=== PATIENT | female | born 1945 | race Caucasian/White ===

== ENCOUNTER 2018-11-20 11:36 | Emergency (ER) | payer OTHER ==
[2018-11-20 12:00] VITALS: BP 139/76; PULSE 89; TEMP 98; BMI 20.5
--- NOTE | 2018-11-20 12:51 | PDOC ---
History of Present Illness - General Chief Complaint: Injury Stated Complaint: FALL Time Seen by Provider: 11/20/18 12:24 - History of Present Illness Initial Comments: 11/20/18 12:48 73-year-old female with a past medical history of hypertension and dyslipidemia presents for evaluation of right wrist pain after fall on an outstretched hand while playing with her grandson today. She did not hit her head Past History - Past Medical History Allergies/Adverse Reactions: Allergies Allergy/AdvReac Type Severity Reaction Status Date / Time aspirin Allergy Verified 11/20/18 12:00 COPD: No HTN: Yes Hypercholesterolemia: Yes Other medical history: OSTEOPOROSIS - Psycho Social/Smoking Cessation Hx Smoking History: Never smoked Review of Systems - Review of Systems Musculoskeletal: Yes: Joint Pain *Physical Exam - Vital Signs Last Vital Signs Temp Pulse Resp BP Pulse Ox 98 F 89 18 139/76 98 11/20/18 11:57 11/20/18 11:57 11/20/18 11:57 11/20/18 11:57 11/20/18 11:57 - Physical Exam Comments: 11/20/18 12:49 Right wrist skin color and temperature normal. There is swelling about the distal radius with associated tenderness decreased supination and pronation normal elbow flexion and extension no gross sensorimotor deficits neurovascular intact ED Treatment Course - RADIOLOGY Radiology Studies Ordered: Category Date Time Status WRIST- RIGHT [RAD] Stat Radiology 11/20/18 12:24 Taken Medical Decision Making - Medical Decision Making 11/20/18 12:49 X-rays of the right wrist show distal radius fracture which is impacted sugar tong splint applied patient neurovascular intact post sugar tong splint application orthopedic surgery follow-up given discussed use of Tylenol for pain Discharge - Discharge Information Problems reviewed: Yes Clinical Impression/Diagnosis: Wrist fracture, right Condition: Stable Disposition: HOME - Admission No - Follow up/Referral Referrals: Gordon Avery DO [Staff Physician] - - Patient Discharge Instructions Additional Instructions: Please keep the splint in place clean and dry. Do not remove it. Tylenol as directed for pain. Return to the emergency room for worsening symptoms. Without fail, please follow-up with orthopedic surgery in 1 to 2 days for further evaluation and treatment options. - Post Discharge Activity
== END 2018-11-20 13:25 | disposition home or self-care (01) ==
LOC: JERFT 11:36 → EDBD 11:36 → JERFT 13:25
PROC: 2W3CX1Z Immobilization of Right Lower Arm using Splint (ICD-10-PCS; principal; 2018-11-20)
DX: S52.591A Other fractures of lower end of right radius, initial encounter for closed fracture (principal); W18.39XA Other fall on same level, initial encounter; Y93.89 Activity, other specified; Y92.018 Other place in single-family (private) house as the place of occurrence of the external cause; Y99.8 Other external cause status; I10 Essential (primary) hypertension; E78.5 Hyperlipidemia, unspecified; E78.00 Pure hypercholesterolemia, unspecified; M19.90 Unspecified osteoarthritis, unspecified site; Z88.6 Allergy status to analgesic agent
CPT/HCPCS: 29126; 73110-TC-RT-FY; 99282-25

== ENCOUNTER 2018-11-28 04:49 | Day surgery (SDC) | payer OTHER ==
[2018-11-27 15:41] VITALS: BMI 20.5
[2018-11-28] MEDS ORDERED: SODIUM CHLORIDE 0.9% P/F 10 ML VIAL IJ ONE (09:42)
[2018-11-28] MEDS ORDERED: DEXAMETHASONE SOD PHOSPHATE 4 MG/1 ML VIAL ONE (09:42)
[2018-11-28] MEDS ORDERED: PROPOFOL 20 ML ONE (09:42)
[2018-11-28] MEDS ORDERED: ceFAZolin SODIUM 1 GM VIAL ONE (09:42)
--- NOTE | 2018-11-28 09:56 | HP ---
Satellite PMH - Chief Complaint Chief Complaint: right wrist fx - Past Medical History Allergies/Adverse Reactions: Allergies Allergy/AdvReac Type Severity Reaction Status Date / Time aspirin Allergy Intermediate Verified 11/27/18 15:42 [facility] Physical Exam - Physical Examination General Appearance: Well Nourished, Well Developed, Alert & Oriented x3 ENT: Clear Lung: Normal air movement Heart: Regular rate & rhythm Extremities: Other (right wrist- + swelling, + deformity, + ttp, decr rom, nvi, xrays show displaced distal radius fx) Neurological: Intact, Alert, Oriented Satellite Impression/Plan - Impression/Plan Impression: right distal radius fx Operative Procedure: right distal radius orif Date to be Performed: 11/28/18
[2018-11-28] MEDS ORDERED: oxyCODONE HCL 5 MG TABLET PO PRN ×2 (10:34)
[2018-11-28] MEDS ORDERED: ONDANSETRON 4 MG/2 ML VIAL IVPUSH PRN (10:34)
[2018-11-28] MEDS ORDERED: LACTATED RINGERS SOLUTION 1,000 ML IV SCH (10:45)
[2018-11-28] MEDS ORDERED: MIDAZOLAM HCL 2 MG/2 ML SINGLE DOSE VIAL ONE ×2 (11:07)
[2018-11-28] MEDS ORDERED: LIDOCAINE HCL 1%, 10 MG/ML (20ML VIAL) ONE (11:27)
[2018-11-28] MEDS ORDERED: BUPIVACAINE HCL/PF 0.5% (5 MG/ML) 30 ML VIAL IJ ONE (11:28)
[2018-11-28] MEDS ORDERED: ceFAZolin SODIUM 1 GM VIAL IVPB ONE (12:20)
--- NOTE | 2018-11-28 13:36 | OP ---
Operative Note - Note: Operative Date: 11/28/18 Pre-Operative Diagnosis: right distal radius fx Operation: right distal radius ORIF, Brachioradialis tenotomy Implants: [employer] Low Profile DVR Plate, x6 blue distal partially threaded locking screws 16-24mm, x3 3.5 mm purple proximal screws 10, 10, 12mm Post-Operative Diagnosis: Same as Pre-op Surgeon: Kevin Anna Tape Edge Machine Operator: Ted Zaragoza Anesthesiologist/RELIEF MANAGER: Carolin Silveira Anesthesia: General Estimated Blood Loss (mls): 0 Drains, Volume Out (mls): 0 Blood Volume Replaced (mls): 0 Fluid Volume Replaced (mls): 1,000 Operative Report Dictated: Yes
[2018-11-28 16:06] VITALS: BP 126/61; PULSE 71; TEMP 98
--- NOTE | 2018-11-29 08:08 | SPEC ---
DATE OF OPERATION: 11/28/2018 PREOPERATIVE DIAGNOSIS: Comminuted intra-articular displaced right distal radius fracture. POSTOPERATIVE DIAGNOSIS: Comminuted intra-articular displaced right distal radius fracture. PROCEDURE PERFORMED: Right distal radius open reduction and internal fixation, and brachioradialis tenotomy. SURGEON: Joan Fournier M.D. DIRECTOR OF STRATEGIC SALES: ANIBAL Worthington ANESTHESIOLOGIST: Carolin Silveira MD ANESTHESIA: LM anesthesia with a right interscalene block. DRAINS: None. COMPLICATIONS: None. SPECIMENS: None. BLOOD LOSS: None. BLOOD GIVEN: None. FLUID REPLACEMENT: PlasmaLyte 700 mL. TOTAL TOURNIQUET TIME: 49 minutes. INDICATIONS: This patient is a 73-year-old female with the preoperative diagnosis of a comminuted intra-articular displaced right distal radius fracture. After understanding the potential risks, complications, alternatives and benefits of surgery versus nonsurgical treatment, the patient elected to undergo this procedure. She and her family understand that her wrist will never be normal; it will never be like it was before; she may need additional surgery; there is always a risk of need for hardware removal and infection. DESCRIPTION: The patient was brought to the operating room, peripheral IV placed and IV sedation given. IV Ancef 2 g was given. A right interscalene block was performed. LM anesthesia was induced. The right upper extremity was prepped and draped in the sterile fashion, elevated and exsanguinated with an Esmarch bandage, and tourniquet inflated to 250 mmHg. The entire case was done under 3.8 loupe magnification. Typical FCR approach was marked out with a marking pen and incision made with No. 15 scalpel blade. Subcutaneous hemostasis was achieved with a bipolar cautery. The radial artery was retracted gently in a radial direction and ulnar to this, using a fresh No. 15 scalpel blade, the muscular fascia was incised. Blunt dissection was done with my index finger down to the volar aspect of the distal radius. Weitlaner retractors were placed deep into the wound for visualization. A periosteal elevator was used to do subperiosteal dissection exposing the fracture site. There was a main transverse component to the distal radius fracture but in addition there were several pieces, some extending towards the radial carpal joint and some towards the distal radial ulnar joint. The fracture site was copiously irrigated and washed out. All debris including hematoma and muscle were removed. A provisional reduction was performed and seemed to come together quite nicely. There was a small metaphyseal defect. X-rays were taken in A-P and lateral planes documenting excellent position of the fracture fragments, restoring radial height inclination and volar tilt. Before I put the plate on, I did put in 1 mL of [place] Putty Bone Graft. Next a standard [employer] left volar low profile DVR plate was placed on the volar aspect of the distal radius. We used a long plate with a thin distal portion. Two K-wires were placed and x-rays were taken documenting excellent position, length and subchondral position. We used three 3.5-mm proximal screws of 10, 10 and 12 mm in length. I used a total of 6 distal partially threaded locking screws, from 18 to 24 mm in length. X-rays again were taken documenting excellent position and support of the subchondral bone. The rest of the screws were then put in, first 2 additional purple proximal screws of 12 and 14 mm in length for 6 cortices proximally and then the silver drill bit was used to put in the remaining 6 screws of both the proximal and distal row from 18 mm to 24 mm of length, all partially threaded locking screws. All of the guides were removed and passed off the field. Final x-rays were taken in AP and lateral planes. I was quite happy with the fracture reduction position, position of the radial carpal joint, distal radial ulnar joint length, height and tilt. During the dissection, I used a fresh No. 15 blade to release a portion of the brachioradialis from the radial styloid in order to be able to do a reduction. JOAN FOURNIER M.D. [id number]
== END 2018-11-28 16:06 | disposition home or self-care (01) ==
LOC: JASU-SURG 04:49
PROVIDERS: ATTEND Orthopaedic Surgery
PROC: 0PSH04Z Reposition Right Radius with Internal Fixation Device, Open Approach (ICD-10-PCS; principal; 2018-11-28 11:00)
DX: S52.571A Other intraarticular fracture of lower end of right radius, initial encounter for closed fracture (principal); X58.XXXA Exposure to other specified factors, initial encounter; Y93.9 Activity, unspecified; Y92.9 Unspecified place or not applicable; Y99.9 Unspecified external cause status
CPT/HCPCS: 25608; C1713; 76000-TC-FY; 94760

== ENCOUNTER 2019-11-18 16:55 | Inpatient (IN) | payer OTHER ==
--- NOTE | 2019-11-18 17:02 | PDOC ---
Rapid Medical Evaluation Time Seen by Provider: 11/18/19 16:58 Medical Evaluation: Allergies Allergy/AdvReac Type Severity Reaction Status Date / Time aspirin Allergy Intermediate Verified 11/27/18 15:42 11/18/19 16:58 74 year old female pmhx of HTN HLD hypoK PUD presenting to the ED complaining of dizziness nausea vomitting weakness. Pt states she has severe imbalance and symptoms worsen on ambulation PE: lethargic CTA RRR benign neuro Plan EKG Labs
--- OUTSIDE RECORDS SUMMARY | 2019-11-18 17:17 | XMS ---
:1945 Author Organization [facility] Support Name Relationship Address Phone RE Unavailable Unavailable Unavailable MARTIN GUERIN DAUGHTER [address] [place] [id number] Re-disclosure Warning The records that you are about to access may contain information from federally- assisted alcohol or drug abuse programs. If such information is present, then the following federally mandated warning applies: This information has been disclosed to you from records protected by federal confidentiality rules (42 CFR part 2). The federal rules prohibit you from making any further disclosure of this information unless further disclosure is expressly permitted by the written consent of the person to whom it pertains or as otherwise permitted by 42 CFR part 2. A general authorization for the release of medical or other information is NOT sufficient for this purpose. The Federal rules restrict any use of the information to criminally investigate or prosecute any alcohol or drug abuse patient.The records that you are about to access may contain highly sensitive health information, the redisclosure of which is protected by Article 27-F of the [facility] Public Health law. If you continue you may haveaccess to information: Regarding HIV / AIDS; Provided by facilities licensed or operated by the [facility] Office of Mental Health; or Provided by the [facility] Office for People With Developmental Disabilities. If such information is present, then the following [facility] mandated warning applies: This information has been disclosed to you from confidential records which are protected by state law. State law prohibits you from making any further disclosure of this information without the specific written consent of the person to whom it pertains, or as otherwise permitted by law. Any unauthorized further disclosure in violation of state law may result in a fine or long term sentence or both. A general authorization for the release of medical or other information is NOT sufficient authorization for further disclosure. Insurance Providers Payer name Policy type Policy ID Covered Covered green party's Policy P emilia / Coverage green party ID relationship to Jaquez Inf ormation type jaquez MEDICAID [id number] SP [id number] [employer] [id number] SP [id number] MEDICARE [employer] FIRST [id number] SP [id number] MEDICARE Results ID Date Data Source [id number] 08/08/2019 12:00:00 AM EDT [facility] Name Value Range Interpretation Code Description Data Tisha rce(s) Supporting Document(s ) 2019-nCoV TXSDOH RNA XXX TAMARA+probe- Imp This lab was ordered by [facility] RAFAEL pineda nd reported by [employer] Procedure
[2019-11-18 18:08] LABS: BASO % 0.3 % (0-2.0); HEMATOCRIT 40.8 % (32.4-45.2); HEMOGLOBIN 13.4 GM/dL (10.7-15.3); LYMPH % 6.5 % (8-40); MCH 28.4 pg (25.7-33.7); MCHC 32.9 g/dl (32.0-36.0); MEAN CELL VOLUME 86.4 fl (80-96); NEUT % 91.2 % (42.8-82.8); PLATELET COUNT 319 K/MM3 (134-434); RBC 4.72 M/mm3 (3.60-5.2); RDW 13.2 % (11.6-15.6); WHITE BLOOD COUNT 16.2 K/mm3 (4.0-10.0)
[2019-11-18 18:14] LABS: INR 1.03 (0.83-1.09); PROTHROMBIN TIME (PATIENT) 12.2 SEC (9.7-13.0)
[2019-11-18 18:34] LABS: ALBUMIN 3.7 g/dl (3.4-5.0); ALK PHOS 67 U/L (45-117); ANION GAP 8 MMOL/L (8-16); BILIRUBIN,TOTAL 0.2 mg/dL (0.2-1); BLOOD UREA NITROGEN 14.3 mg/dL (7-18); CALCIUM 9.3 mg/dL (8.5-10.1); CHLORIDE 103 mmol/L (98-107); CO2 28 mmol/L (21-32); CREATININE 0.8 mg/dL (0.55-1.3); GLUCOSE,RANDOM 164 mg/dL (74-106); LIPASE 162 U/L (73-393); N-TERMINAL BNP 139.4 pg/ml (5-125); POTASSIUM 3.5 mmol/L (3.5-5.1); SGOT/AST 19 U/L (15-37); SGPT/ALT 21 U/L (13-61); SODIUM 139 mmol/L (136-145); TOT PROT 8.2 g/dl (6.4-8.2)
--- NOTE | 2019-11-18 19:11 | PDOC ---
History of Present Illness - General Chief Complaint: Weakness Stated Complaint: WEAKNESS/VOMITING Time Seen by Provider: 11/18/19 16:58 - History of Present Illness Initial Comments: 74 YOF h/o hld, htn, presents after bout of nausea and vomiting at 1pm today. Per patients daughter she vomitted 4 times, initially food then bile then brownish in color. To her knowledge there was no bright red blood in her vomit. She decided to present to the ER for intractable vomiting. She also mentions some difficulty walking 2/2 weakness. She otherwise denies CP, SOB, diarrhea, fever, chills, recent sick contacts, blood or discomfort with urination, blood or discomfort with stool. Constitutional: No Weight Change, No Fever, No Chills, No Night Sweats, No Fatigue, No Malaise ENT/Mouth: No Hearing Changes, No Ear Pain, No Nasal Congestion, No Sinus Pain, No Hoarseness, No sore throat, No Rhinorrhea, No Swallowing Difficulty Eyes: No Eye Pain, No Swelling, No Redness, No Foreign Body, No Discharge, No Vision Changes Cardiovascular: No Chest Pain, No SOB, No PND, No Dyspnea on Exertion, No Orthopnea, No Claudication, No Edema, No Palpitations Respiratory: No Cough, No Sputum, No Wheezing, No Smoke Exposure, No Dyspnea Gastrointestinal: + Nausea, + Vomiting, No Diarrhea, No Constipation, No Pain, No Heartburn, No Anorexia, No Dysphagia, No Hematochezia, No Melena, No Flatulence, No Jaundice Genitourinary: No Dysmenorrhea, No Dysuria, No Urinary Frequency, No Hematuria, No Urinary Incontinence, No Urgency, No Flank Pain, No Urinary Flow Changes, No Hesitancy Musculoskeletal: No Arthralgias, No Myalgias, No Joint Swelling, No Joint Stiffness, No Back Pain, No Neck Pain, No Injury History Skin: No Skin Lesions, No Pruritis, No Hair Changes, No Breast/Skin Changes, No Nipple Discharge Neuro: No Weakness, No Numbness, No Paresthesias, No Loss of Consciousness, No Syncope, No Dizziness, No Headache, No Coordination Changes, No Recent Falls Psych: No Anxiety/Panic, No Depression, No Insomnia, No Personality Changes, No Delusions, No Rumination, No SI/HI/AH/VH, No Social Issues, No Memory Changes, No Violence/Abuse Hx., No Eating Concerns Heme/Lymph: No Bruising, No Bleeding, No Transfusions History, No L ymphadenopathy Endocrine: No Polyuria, No Polydipsia, No Temperature Intolerance Past History - Medical History Allergies/Adverse Reactions: Allergies Allergy/AdvReac Type Severity Reaction Status Date / Time aspirin Allergy Intermediate Verified 11/18/19 16:58 Home Medications: Ambulatory Orders Benazepril HCl [Lotensin] 20 mg PO DAILY 11/28/18 Simvastatin [Zocor] 20 mg PO HS 11/28/18 Alendronate Sodium/Vitamin D3 [Fosamax Plus D 70 mg-5,600 Iu vIT d] 1 each PO Q7D 11/18/19 Hydroxyzine HCl 25 mg PO DAILY 11/19/19 Olopatadine HCl [Pataday] 2.5 ml OP DAILY 11/19/19 Apixaban [Eliquis -] 5 mg PO BID 15 Days #30 tablet 11/20/19 Metoprolol Tartrate [Lopressor -] 50 mg PO BID 30 Days #60 tablet 11/20/19 Anemia: No Asthma: No Cancer: No Cardiac Disorders: No CVA: No COPD: No CHF: No Dementia: No Diabetes: No GI Disorders: No Disorders: No HTN: Yes Hypercholesterolemia: Yes Liver Disease: No Seizures: No Thyroid Disease: No - Psycho-Social/Smoking History Smoking History: Never smoked Have you smoked in the past 12 months: No - Substance Abuse Hx (Audit-C & DAST Scrn) How often the patient has a drink containing alcohol: Never Score: In Men: 4 or > Positive; In Women: 3 or > Positive: 0 Screen Result (Pos requires Nsg. Audit-10AR): Negative In the last yr the pt used illegal drug/Rx for NonMed reason: No Score: Yes response is considered Positive: 0 Screen Result (Positive result requires Nsg. DAST-10): Negative *Physical Exam - Vital Signs Last Vital Signs Temp Pulse Resp BP Pulse Ox 97.9 F 103 H 14 105/66 100 11/18/19 16:58 11/18/19 16:58 11/18/19 16:58 11/18/19 16:58 11/18/19 16:58 - Physical Exam General Appearance: Yes: Nourished, Appropriately Dressed HEENT: positive: EOMI, VENITA, Normal ENT Inspection, Normal Voice, Symmetrical, TMs Normal, Pharynx Normal Neck: positive: Trachea midline, Normal Thyroid Respiratory/Chest: positive: Lungs Clear, Normal Breath Sounds Cardiovascular: positive: Regular Rhythm, Regular Rate, S1, S2 Musculoskeletal: positive: Normal Inspection Extremity: positive: Normal Capillary Refill, Normal Inspection Integumentary: positive: Normal Color, Dry, Warm Neurologic: positive: manager managed backup services II-XII NML intact, Fully Oriented, Alert, Normal Mood/Affect, Normal Response, Motor Strength 06/10 ED Treatment Course - LABORATORY CBC & Chemistry Diagram: 11/20/19 06:55 11/20/19 06:55 - ADDITIONAL ORDERS Additional order review: Laboratory Results 11/18/19 11/18/19 17:55 17:55 PT with INR 12.20 INR 1.03 Sodium 139 Potassium 3.5 Chloride 103 Carbon Dioxide 28 Anion Gap 8 BUN 14.3 Creatinine 0.8 Est GFR (CKD-EPI)AfAm 84.77 Est GFR (CKD-EPI)NonAf 73.14 Random Glucose 164 H Calcium 9.3 Total Bilirubin 0.2 AST 19 ALT 21 Alkaline Phosphatase 67 Creatine Kinase 28 B-Natriuretic Peptide 139.4 H Total Protein 8.2 Albumin 3.7 Lipase 162 11/18/19 17:55 RBC 4.72 MCV 86.4 MCHC 32.9 RDW 13.2 MPV 8.0 Neutrophils % 91.2 H D Lymphocytes % 6.5 L D Monocytes % 2.0 L Eosinophils % 0.0 D Basophils % 0.3 Medical Decision Making - Medical Decision Making 74 YOF h/o htn, hld presenting after bout of nausea and vomiting found to have AFIB on EKG - HR in 120s, vitals otherwise wnl - exam unremarkable - will do CBC, CMP, cardiac profile, CXR, UA, fluids and reassess 11/18/19 19:56 - Patients rate continued to climb into 120s- 130s, decision made to give 10mg diltiazem (19:36) and reassess 11/18/19 19:57 Patients rate in 80s-90s Patient sent for CT abdomen w/o contrast CT abdomen reveals adrenal nodule Will admit patient for tele 11/23/19 15:27 Discharge - Discharge Information Problems reviewed: Yes Clinical Impression/Diagnosis: Atrial fibrillation Qualifiers: Atrial fibrillation type: unspecified Qualified Code(s): I48.91 - Unspecified atrial fibrillation Nausea and vomiting Qualifiers: Vomiting type: unspecified Vomiting Intractability: unspecified Qualified Code(s): R11.2 - Nausea with vomiting, unspecified Leukocytosis Qualifiers: Leukocytosis type: unspecified Qualified Code(s): D72.829 - Elevated white blo od cell count, unspecified Condition: Stable Disposition: HOME - Follow up/Referral - Patient Discharge Instructions - Post Discharge Activity
[2019-11-18 19:14] LABS: PLATELET ESTIMATE ADEQUATE
[2019-11-18] MEDS ORDERED: dilTIAZem HCL 50 MG/10 ML - 10 ML VIAL IVPUSH ONE ×2 (19:36→21:19)
--- NOTE | 2019-11-18 19:50 | PDOC ---
Attending Attestation - Resident Resident Name: Joseph Linares - ED Attending Attestation I have performed the following: I have examined & evaluated the patient, The case was reviewed & discussed with the resident, I agree w/resident's findings & plan, Exceptions are as noted - HPI HPI: 74 yo F history HL, HTN presents after multiple episodes of nausea and vomiting today. Initially vomiting food, then bile, then brown material. Nonbloody. +Weakness. Denies fever, chills, diarrhea, dysuria. - Physicial Exam PE: GENERAL: Awake, alert, and fully oriented, in no acute distress HEAD: No signs of trauma EYES: PERRLA, EOMI, sclera anicteric, conjunctiva clear ENT: Auricles normal inspection, hearing grossly normal, nares patent, oropharynx clear without exudates. Dry mucosa NECK: Normal ROM, supple, no lymphadenopathy, JVD, or masses LUNGS: Breath sounds equal, clear to auscultation bilaterally. No wheezes, and no crackles HEART: Regular rate and rhythm, normal S1 and S2, no murmurs, rubs or gallops ABDOMEN: Soft, nontender, normoactive bowel sounds. No guarding, no rebound. No masses EXTREMITIES: Normal range of motion, no edema. No clubbing or cyanosis. No cords, erythema, or tenderness NEUROLOGICAL: Cranial nerves II through XII grossly intact. Normal speech. Motor and sensation intact SKIN: Warm, dry, normal turgor, no rashes or lesions noted. - Medical Decision Making 11/18/19 21:11 Pt with afib on monitor. Multiple episodes of vomiting, with leukocytosis on labs that is unexplained. Await CT reading. Likely admission. Discharge - Discharge Information Problems reviewed: Yes Clinical Impression/Diagnosis: Atrial fibrillation Qualifiers: Atrial fibrillation type: unspecified Qualified Code(s): I48.91 - Unspecified atrial fibrillation Nausea and vomiting Qualifiers: Vomiting type: unspecified Vomiting Intractability: unspecified Qualified Code(s): R11.2 - Nausea with vomiting, unspecified Leukocytosis Qualifiers: Leukocytosis type: unspecified Qualified Code(s): D72.829 - Elevated white blood cell count, unspecified - Follow up/Referral - Patient Discharge Instructions - Post Discharge Activity
[2019-11-18 20:41] LABS: URINE APPEARANCE TURBID; URINE BILIRUBIN NEGATIVE (NEGATIVE); URINE COLOR YELLOW; URINE GLUCOSE (UA) NEGATIVE (NEGATIVE); URINE KETONE NEGATIVE (NEGATIVE); URINE LEUK ESTERASE NEGATIVE (NEGATIVE); URINE NITRITE NEGATIVE (NEGATIVE); URINE PROTEIN TRACE (NEGATIVE); URINE UROBILINOGEN 0.2 mg/dL (0.2-1.0)
[2019-11-18] MEDS ORDERED: dilTIAZem HCL 60 MG TABLET PO ONE (21:19)
[2019-11-18] MEDS ORDERED: dilTIAZem HCL 60 MG TABLET ONE (21:29)
--- NOTE | 2019-11-18 23:35 | PN ---
Teaching Attending Note Name of Resident: Teresa Mesa ATTENDING PHYSICIAN STATEMENT I saw and evaluated the patient. I reviewed the resident's note and discussed the case with the resident. I agree with the resident's findings and plan as documented. SUBJECTIVE: Patient is a 74 year old woman with a PMH of HLD, HTN, GI bleed (2008), Oste oporosis and Right distal radius fracture (11/2018) who presents to the ER after epidoes of nausea and vomiting at 1 pm today. Per patients daughter she vomited four times, initially food, then bile and then brownish in color. She also mentions some difficulty walking due to weakness. Patient denies chest pain, shortness of breath, abdominal pain, headache, palpitations, dizziness, fever, chills, diarrhea, constipation, dysuria, frequency, urgency, melena, hematochezia or hematuria. Denies alcohol, tobacco or illicit drug use. No sick contacts or recent travels. Family history of thyroid disease; bone cancer in one brother, brain cancer in another brother and colon cancer in mother. On arrival in the ER she was noted to be in Afib (130s) and got IV and PO Cardiazem. OBJECTIVE: Alert Vital Signs Period Temp Pulse Resp BP Sys/Astorga Pulse Ox Last 24 Hr 97.9 F 88-132 14-27 105-121/66-96 97-100 HEENT: No Jaundice, eye redness or discharge, PERRLA, EOMI. Normocephalic, at raumatic. External ears are normal and hearing is grossly intact. No nasal discharge. Neck: Supple, nontender. No palpable adenopathy or thyromegaly. No JVD Chest: Good effort. Clear to auscultation and percussion. Heart: Irregularly irregular. No S3, rub or murmur Abdomen: Not distended, soft, nontender and no HSM. No rebound or guarding. Normal bowel sounds. Ext: Peripheral pulses intact. No leg edema. Skin: Warm and dry. No petechiae, rash or ecchymosis. Neuro: Alert. Oriented x3. CN 2-12 grossly intact. Sensation grossly intact in all four extremities and DTR are symmetric. Psych: Appropriate mood and affect. Good insight. Home Medications Medication Instructions Recorded Atenolol [Tenormin -] 25 mg PO DAILY 11/28/18 Benazepril HCl [Lotensin] 20 mg PO DAILY 11/28/18 Simvastatin [Zocor] 20 mg PO DAILY 11/28/18 Alendronate Sodium/Vitamin D3 1 each PO Q7D 11/18/19 [Fosamax Plus D 70 mg-5,600 Iu vIT d] Abnormal Lab Results 11/18/19 11/18/19 17:55 17:55 WBC 16.2 H Absolute Neuts (auto) 14.8 H Neutrophils % 91.2 H D Neutrophils % (Manual) 86.0 H Lymphocytes % 6.5 L D Lymphocytes % (Manual) 6.0 L Monocytes % 2.0 L Monocytes % (Manual) 3 L Random Glucose 164 H B-Natriuretic Peptide 139.4 H Current Medications Generic Name Dose Route Start Last Admin Trade Name Freq PRN Reason Stop Dose Admin Apixaban 5 mg 11/19/19 10:00 Eliquis - PO BID [facility] Metoprolol Tartrate 25 mg 11/19/19 03:05 Lopressor - PO DAILY [facility] ASSESSMENT AND PLAN: 1. Gastroenteritis/New onset Afib - Etiology of GI symptoms is unclear - may be viral gastroenteritis or food poisoning, but significant leukocytosis with left shift is concerning. CT scan of abdomen/pelvis without contrast didnot show any acute abnormality. No acute abnormality on CXR but shows weak inspiratory effort. Will repeat CBC, do blood cultures, continue IV NS and withhold antibiotics for now. If she has diarrhea, will send stool for culture, Ova&Parasites, C. Difficile toxin, Norovirus and consult GI. EKG shows Afib at 109/minute, and QTc 457, PVCs with no significant acute ischemic ST-T wave changes. Old EKG from 11/26/2018 was NSR. Initial troponin is negative. Her [id number] score is 3. Will admit to telemetry, trend troponin, repeat EKG, get ECHO, HbA1c, TSH, fasting lipid profile, hold Atenolol, treat with Toprol XL 25 mg PO qd, Eliquis 5 mg PO bid and consult Cardiology. Viral testing for COVID-19 ordered and patient placed on airborne, droplet and contact isolation. Started on supplemental oxygen via nasal cannula. Will continue comprehensive care for all of patients comorbid conditions. 2. Hypertension Hold Atenolol and use Toprol XL 25 mg qd. Subsequently, will revise regimen to ensure [id number] excellent BP control. Patient counseled on the injurious effects of uncontrolled hypertension. Nonpharmacologic measures to control hypertension like weight loss, salt restriction and exercise stressed. Importance of adherence to treatment regimen and attainment of normotension emphasized. 3. DVT prophylaxis - On Eliquis. 4. Advance directives - Full code
--- OUTSIDE RECORDS SUMMARY | 2019-11-19 00:03 | XMS ---
:1945 Author Organization [facility] Support Name Relationship Address Phone RE, RETIRED Unavailable Unavailable Unavailable RE Unavailable Unavailable Unavailable MARTIN GUERIN DAUGHTER [address] [facility] [address] [phone] [place] [phone] Re-disclosure Warning The records that you are [...] is protected by Article 27-F of the [facility] Public Health law. If you continue you may haveaccess to information: Regarding HIV / AIDS; Provided by facilities licensed or operated by the [facility] Office of Mental Health; or Provided by the [facility] Office for People With Developmental Disabilities. If such information is present, then the following [facility] mandated warning applies: This information has been [...] law may result in a fine or shelter sentence or both. A general authorization for the release of medical or other information is NOT sufficient authorization for further disclosure. Insurance Providers Payer name Policy type Policy ID Covered Covered alliance party's Policy P emilia / Coverage alliance party ID relationship to Jaquez Inf ormation type jaquez MEDICAID [id number] SP [id number] [employer] [id number] SP [id number] MEDICARE HEALTH FIRST [id number] SP [id number] MEDICARE Results ID Date Data Source [id number] 08/08/2019 12:00:00 AM EDT [facility] Name Value Range Interpretation Code Description Data Tisha rce(s) Supporting Document(s ) 2019-nCoV [facility] RNA XXX TAMARA+probe- Imp This lab was ordered by [facility] pineda nd reported by [employer] Procedure
--- NOTE | 2019-11-19 01:32 | HP ---
CHIEF COMPLAINT: Nausea, vomiting, weakness PCP: Dr. Garcia at [facility] HISTORY OF PRESENT ILLNESS: Ally Aggarwal is a 74 year old woman with PMH hypertension, hyperlipidemia, prior GI bleed (2008), presenting with 1 day of nausea, and 4 episodes of vomiting. She states she has been in her normal state of good health, was at her son's home for breakfast this morning and cooked eggs. By approx 11 am she was feeling nauseous, and vomited around noon. Her daughter drove her home, and she proceeded to vomit 3 additional times, with the vomit turning greenish in color. Her daughter urged her to go to the ED after the patient revealed she was feeling tired, weak, and dizzy. She has never experienced an episode like this before. She denies recent fall, recent hospitalization, fever, chills, chest pain, dyspnea, syncope, abdominal pain, hematemesis, hematochezia, diarrhea, dysuria, edema. She saw her PCP 2 months ago for a physical and was told all tests came back normal, including EKG. Last colonoscopy was ~10 years ago and was done following GI bleed she experienced in 2008. States the results were normal. Regarding previous GI bleed, patient states she was hospitalized with an abdominal infection, and describes a vein rupturing causing hematemesis. No further info known. Patient lives in apartment by herself, is independent in all activities. ER course was notable for: - New onset afib with RVR: HR 109, QTc 457, afib with rvr and premature ventricular conduction - CT abdomen: no acute pathology; 1.7 cm L adrenal nodule - CXR negative for acute pathology - WBCs 16.2 Recent Travel: None PAST MEDICAL HISTORY: Hypertension Hyperlipidemia Prior GI bleed (2008) Osteoporosis PAST SURGICAL HISTORY: R distal radius fracture ORIF with brachioradialis tenotomy (2019) ? patient reports surgical intervention in 2008 while hospitalized with abdominal infection, vein ruptured, causing GI bleed Social History: Smoking:no Alcohol:no Drugs:no Allergies aspirin Allergy (Intermediate, Verified 11/18/19 16:58) GI UPSET HOME MEDICATIONS: Home Medications Medication Instructions Recorded Atenolol [Tenormin -] 25 mg PO DAILY 11/28/18 Benazepril HCl [Lotensin] 20 mg PO DAILY 11/28/18 Simvastatin [Zocor] 20 mg PO DAILY 11/28/18 Alendronate Sodium/Vitamin D3 1 each PO Q7D 11/18/19 [Fosamax Plus D 70 mg-5,600 Iu vIT d] REVIEW OF SYSTEMS SEE HPI PHYSICAL EXAMINATION Vital Signs - 24 hr 11/18/19 11/18/19 11/18/19 16:58 19:22 19:46 Temperature 97.9 F Pulse Rate 103 H Pulse Rate [ 132 H 125 H Apical] Pulse Rate [ Right Radial] Respiratory 14 27 H 25 H Rate Blood Pressure 105/66 Blood Pressure 121/96 118/88 [Right Arm] O2 Sat by Pulse 100 97 Oximetry (%) 11/18/19 11/18/19 11/19/19 19:51 23:53 00:41 Temperature Pulse Rate Pulse Rate [ 96 H 88 Apical] Pulse Rate [ Right Radial] Respiratory Rate Blood Pressure Blood Pressure [Right Arm] O2 Sat by Pulse 95 Oximetry (%) 11/19/19 00:43 Temperature Pulse Rate Pulse Rate [ Apical] Pulse Rate [ 80 Right Radial] Respiratory 22 H Rate Blood Pressure Blood Pressure 105/86 [Right Arm] O2 Sat by Pulse 96 Oximetry (%) GENERAL: Awake, alert, and fully oriented, in no acute distress. HEAD: Normal with no signs of trauma. EYES: Pupils equal, round and reactive to light, extraocular movements intact, sclera anicteric EARS, NOSE, THROAT: Ears normal, nares patent, oropharynx clear without exudates. NECK: Normal range of motion, supple without lymphadenopathy LUNGS: Breath sounds equal, clear to auscultation bilaterally. No wheezes, and no crackles. No accessory muscle use. HEART: Tachycardia, irregularyl irregular rate ABDOMEN: Soft, nontender, not distended, normoactive bowel sounds, no guarding, no rebound, no masses. MUSCULOSKELETAL: Normal range of motion at all joints. No bony deformities or tenderness. No CVA tenderness. LOWER EXTREMITIES: 2+ pulses, warm, well-perfused. No calf tenderness. No peripheral edema. NEUROLOGICAL: Cranial nerves II-XII intact. Normal speech. Normal gait. PSYCHIATRIC: Cooperative. Good eye contact. Appropriate mood and affect. Laboratory Results - last 24 hr 11/18/19 11/18/19 11/18/19 17:55 17:55 17:55 WBC 16.2 H RBC 4.72 Hgb 13.4 Hct 40.8 MCV 86.4 MCH 28.4 MCHC 32.9 RDW 13.2 Plt Count 319 MPV 8.0 Absolute Neuts (auto) 14.8 H Total Counted 100 Neutrophils % 91.2 H D Neutrophils % (Manual) 86.0 H Band Neutrophils % 5.0 Lymphocytes % 6.5 L D Lymphocytes % (Manual) 6.0 L Monocytes % 2.0 L Monocytes % (Manual) 3 L Eosinophils % 0.0 D Basophils % 0.3 Nucleated RBC % 0 Platelet Estimate Adequate Platelet Comment No clumping noted PT with INR 12.20 INR 1.03 Sodium 139 Potassium 3.5 Chloride 103 Carbon Dioxide 28 Anion Gap 8 BUN 14.3 Creatinine 0.8 Est GFR (CKD-EPI)AfAm 84.77 Est GFR (CKD-EPI)NonAf 73.14 Random Glucose 164 H Calcium 9.3 Total Bilirubin 0.2 AST 19 ALT 21 Alkaline Phosphatase 67 Creatine Kinase 28 Troponin I < 0.02 B-Natriuretic Peptide 139.4 H Total Protein 8.2 Albumin 3.7 Lipase 162 Urine Color Urine Appearance Urine pH Ur Specific [place] Urine Protein Urine Glucose (UA) Urine Ketones Urine Blood Urine Nitrite Urine Bilirubin Urine Urobilinogen Ur Leukocyte Esterase 11/18/19 20:26 WBC RBC Hgb Hct MCV MCH MCHC RDW Plt Count MPV Absolute Neuts (auto) Total Counted Neutrophils % Neutrophils % (Manual) Band Neutrophils % Lymphocytes % Lymphocytes % (Manual) Monocytes % Monocytes % (Manual) Eosinophils % Basophils % Nucleated RBC % Platelet Estimate Platelet Comment PT with INR INR Sodium Potassium Chloride Carbon Dioxide Anion Gap BUN Creatinine Est GFR (CKD-EPI)AfAm Est GFR (CKD-EPI)NonAf Random Glucose Calcium Total Bilirubin AST ALT Alkaline Phosphatase Creatine Kinase Troponin I B-Natriuretic Peptide Total Protein Albumin Lipase Urine Color Yellow Urine Appearance Turbid Urine pH 8.0 D Ur Specific [place] 1.019 Urine Protein Trace Urine Glucose (UA) Negative Urine Ketones Negative Urine Blood Negative Urine Nitrite Negative Urine Bilirubin Negative Urine Urobilinogen 0.2 Ur Leukocyte Esterase Negative ASSESSMENT/PLAN: Ally Aggarwal is a 74 year old woman with PMH hypertension, hyperlipidemia, prior GI bleed (2008), presenting with 1 day of nausea, vomiting, with ED labs revealing leukocytosis and EKG revealing new onset Afib with RVR. #New onset Afib with RVR - CHADVASC score 3- moderate to high risk - Received Diltiazem in ED, which decreased HR from 132 --> 88 - Consider metoprolol 25 mg for uncontrolled rate; hold home atenolol - Begin Eliquis 5 mg BID - F/u TSH - F/u ECHO - Cardio consult #Leukocytosis secondary to likely gastroenteriris - WBCs 16.2 on admission, repeat CBC with WBC 10.9 - Patient has been afebrile, currently asymptomatic - F/U blood cultures #Hyperglycemia - F/u hba1c #Hypertension - Restart home BP meds after med rec DVT prophylaxis : Eliquis 5 mg BID FEN - No standing fluids; encourage po intake - Monitor am labs - Low sodium diet; advance as tolerated Disposition: Tele Family Medical History Family History: As Documented Visit type - Medication Review Med list reviewed for High Risk Meds patients 65 and older: Yes - Emergency Visit Emergency Visit: Yes ED Registration Date: 11/18/19 Care time: The patient presented to the Emergency Department on the above date and was hospitalized for further evaluation of their emergent condition. - New Patient This patient is new to me today: Yes Date on this admission: 11/19/19 - Critical Care Critical Care patient: No ATTENDING PHYSICIAN STATEMENT I saw and evaluated the patient. I reviewed the resident's note and discussed the case with the resident. I agree with the resident's findings and plan as documented. SUBJECTIVE: OBJECTIVE: ASSESSMENT AND PLAN:
[2019-11-19 03:57] LABS: BASO % 0.4 % (0-2.0); EOS % 0.1 % (0-4.5); HEMATOCRIT 36.1 % (32.4-45.2); HEMOGLOBIN 12.2 GM/dL (10.7-15.3); LYMPH % 16.5 % (8-40); MCH 29.6 pg (25.7-33.7); MCHC 33.8 g/dl (32.0-36.0); MEAN CELL VOLUME 87.8 fl (80-96); MEAN PLT VOLUME 8.2 fl (7.5-11.1); MONO % 7.8 % (3.8-10.2); NEUT % 75.2 % (42.8-82.8); PLATELET COUNT 278 K/MM3 (134-434); RBC 4.11 M/mm3 (3.60-5.2); RDW 13.8 % (11.6-15.6); WHITE BLOOD COUNT 10.9 K/mm3 (4.0-10.0)
[2019-11-19] MEDS: METOPROLOL TARTRATE 25 MG TABLET (FP) PO SCH ×2 (04:44→10:24)
[2019-11-19 07:21] LABS: BILIRUBIN,TOTAL 0.4 mg/dL (0.2-1); BLOOD UREA NITROGEN 10.1 mg/dL (7-18); CALCIUM 8.4 mg/dL (8.5-10.1); CREATININE 0.6 mg/dL (0.55-1.3); MAGNESIUM 2.1 mg/dL (1.8-2.4); POTASSIUM 3.7 mmol/L (3.5-5.1); TOT PROT 6.8 g/dl (6.4-8.2)
--- NOTE | 2019-11-19 10:05 | EKG ---
Test Reason : Blood Pressure : / mmHG Vent. Rate : 109 BPM Atrial Rate : 125 BPM P-R Int : 000 ms QRS Dur : 078 ms QT Int : 340 ms P-R-T Axes : 000 052 012 degrees QTc Int : 457 ms ATRIAL FIBRILLATION WITH RAPID VENTRICULAR RESPONSE WITH PREMATURE VENTRICULAR OR ABERRANTLY CONDUCTED COMPLEXES NONSPECIFIC ST AND T WAVE ABNORMALITY ABNORMAL ECG WHEN COMPARED WITH ECG OF 26-NOV-2018 12:32, ATRIAL FIBRILLATION HAS REPLACED SINUS RHYTHM NONSPECIFIC T WAVE ABNORMALITY NOW EVIDENT IN ANTERIOR LEADS Confirmed by MD Arnie, Santos ([id number]) on 11/19/2019 10:04:42 AM Referred By: Confirmed By:Santos Gaitan MD
[2019-11-19] MEDS: APIXABAN 5 MG TABLET PO SCH ×2 (10:24→21:42)
[2019-11-19] MEDS ORDERED: METOPROLOL TARTRATE 25 MG TABLET (FP) ONE (10:25)
[2019-11-19] MEDS ORDERED: APIXABAN 5 MG TABLET ONE (10:26)
--- NOTE | 2019-11-19 10:35 | CON.CARD ---
Consult Consult Specialty:: Cardiology Referred by:: Hospitalist Service Reason for Consultation:: Cardiac evaluation - History of Present Illness Chief Complaint: Nausea and vomiting History of Present Illness: Patient is a 74 year old female with underlying history of HTN, hypercholesterolemia, history of GI bleed who presented with nausea and vomiting. She was found to be in atrial fibrillation with RVR above 100 bpm. Currently, she was seen while in cardiology for echocardiography. She denies chest pain, shortness of breath or palpitations. She denies fever or chills. She denies headache or lightheadedness. She denies abdominal pain or diarrhea. - History Source History Provided By: Patient Limitations to Obtaining History: Language Barrier (obtained via translation) - Past Medical History Cardio/Vascular: Yes: HTN, Hyperlipdemia Gastrointestinal: Yes: GI Bleed - Past Surgical History Past Surgical History: Yes: Additional Surgical History: ORIF right distal radial fracture, breast cyst removal - Alcohol/Substance Use Hx Alcohol Use: No History of Substance Use: reports: None - Smoking History Smoking history: Never smoked Have you smoked in the past 12 months: No Home Medications - Allergies Allergies/Adverse Reactions: Allergies Allergy/AdvReac Type Severity Reaction Status Date / Time aspirin Allergy Intermediate Verified 11/18/19 16:58 - Home Medications Home Medications: Ambulatory Orders Atenolol [Tenormin -] 25 mg PO DAILY 11/28/18 Benazepril HCl [Lotensin] 20 mg PO DAILY 11/28/18 Simvastatin [Zocor] 20 mg PO HS 11/28/18 Alendronate Sodium/Vitamin D3 [Fosamax Plus D 70 mg-5,600 Iu vIT d] 1 each PO Q7D 11/18/19 Hydroxyzine HCl 25 mg PO DAILY 11/19/19 Olopatadine HCl [Pataday] 2.5 ml OP DAILY 11/19/19 Family Medical History Family Hx Cardiac Disorders: Father (CAD, ID, HTN, hypercholesterolemia) Review of Systems - Review of Systems Constitutional: denies: Chills, Fever Cardiovascular: denies: Chest Pain, Palpitations Respiratory: denies: Cough, Hemoptysis, Orthopnea, PND, SOB, SOB on Exertion Gastrointestinal: reports: Nausea, Vomiting. denies: Abdominal Pain, Diarrhea, Rectal Bleeding Musculoskeletal: denies: Back Pain, Joint Pain Neurological: denies: Dizziness, Headache, Seizure, Syncope Vital Signs: Vital Signs Temperature 98.5 F 11/19/19 05:56 Pulse Rate 86 11/19/19 05:56 Respiratory Rate 18 11/19/19 05:56 Blood Pressure 104/67 11/19/19 05:56 O2 Sat by Pulse Oximetry (%) 96 11/19/19 07:41 HENT: Yes: Atraumatic Neck: Yes: Supple Respiratory: Yes: CTA Bilaterally Gastrointestinal: Yes: Normal Bowel Sounds, Soft. No: Tenderness Cardiovascular: Yes: Pulse Irregular JVD: No PMI: Non-Displaced Heart Sounds: Yes: S1, S2 Edema: No - Other Data Labs, Other Data: CBC, BMP 11/19/19 03:30 11/19/19 05:49 INR, PTT INR 1.03 (0.83-1.09) 11/18/19 17:55 Troponin, BNP 11/18/19 11/19/19 17:55 07:30 Troponin I < 0.02 0.02 B-Natriuretic Peptide 139.4 H Laboratory Results - last 24 hr 11/19/19 11/19/19 11/19/19 03:30 05:49 05:49 WBC 10.9 H RBC 4.11 Hgb 12.2 Hct 36.1 MCV 87.8 MCH 29.6 MCHC 33.8 RDW 13.8 Plt Count 278 MPV 8.2 Absolute Neuts (auto) 8.2 H Neutrophils % 75.2 Lymphocytes % 16.5 D Monocytes % 7.8 D Eosinophils % 0.1 D Basophils % 0.4 Nucleated RBC % 0 Sodium 142 Potassium 3.7 Chloride 109 H Carbon Dioxide 26 Anion Gap 7 L BUN 10.1 Creatinine 0.6 Est GFR (CKD-EPI)AfAm 104.80 Est GFR (CKD-EPI)NonAf 90.42 Random Glucose 83 Hemoglobin A1c % 5.6 Calcium 8.4 L Magnesium 2.1 Total Bilirubin 0.4 AST 19 ALT 18 Alkaline Phosphatase 58 Troponin I Total Protein 6.8 Albumin 3.0 L TSH 0.24 L Free T4 Thyroxine (T4) Resin T3 Uptake 11/19/19 11/19/19 11/19/19 07:30 13:15 13:15 WBC RBC Hgb Hct MCV MCH MCHC RDW Plt Count MPV Absolute Neuts (auto) Neutrophils % Lymphocytes % Monocytes % Eosinophils % Basophils % Nucleated RBC % Sodium Potassium Chloride Carbon Dioxide Anion Gap BUN Creatinine Est GFR (CKD-EPI)AfAm Est GFR (CKD-EPI)NonAf Random Glucose Hemoglobin A1c % Calcium Magnesium Total Bilirubin AST ALT Alkaline Phosphatase Troponin I 0.02 Total Protein Albumin TSH Free T4 1.11 Thyroxine (T4) 10.6 Resin T3 Uptake 32.5 Atrial fibrillation with RVR Echo: Report Reviewed (Normal LVEF, no significant valvular regurgitations) Imaging - Results Chest X-ray: Report Reviewed (Unremarkable) Cat Scan: Report Reviewed (Abdominal CT) EKG: Report Reviewed Problem List - Problems (1) HTN (hypertension) Code(s): I10 - ESSENTIAL (PRIMARY) HYPERTENSION (2) Hypercholesterolemia Code(s): E78.00 - PURE HYPERCHOLESTEROLEMIA, UNSPECIFIED (3) Atrial fibrillation Code(s): I48.91 - UNSPECIFIED ATRIAL FIBRILLATION Qualifiers: Atrial fibrillation type: unspecified Qualified Code(s): I48.91 - Unspecified atrial fibrillation (4) Leukocytosis Code(s): D72.829 - ELEVATED WHITE BLOOD CELL COUNT, UNSPECIFIED Qualifiers: Leukocytosis type: unspecified Qualified Code(s): D72.829 - Elevated white blood cell count, unspecified (5) Nausea and vomiting Code(s): R11.2 - NAUSEA WITH VOMITING, UNSPECIFIED Qualifiers: Vomiting type: unspecified Vomiting Intractability: unspecified Qualified Code(s): R11.2 - Nausea with vomiting, unspecified Assessment/Plan 1. New onset AF with periods of RVR [id number] score of 3 2. HTN 3. Hypercholesterolemia 4. History of GI bleed PLAN: 1. Agree with Eliquis 5 mg BID with caution 2. Continue Metoprolol Tartrate 50 mg BID and Lisinopril 20 mg QD 3. Continue Atorvastatin 20 mg QHS 4. TFT reviewed (TSH 0.24) 5. If remains in atrial fibrillation, may consider synchronized cardioversion either after 4-6 weeks of anticoagulation or OSBALDO guided synchronized cardioversion. Echocardiography report noted. Further plans are to follow Best Coe MD
--- NOTE | 2019-11-19 10:58 | ECHO ---
Version: 1 Name: MELISSA GUERIN Exam: Adult Echocardiogram Study Date: 11/19/2019, 10:15 AM Age: 74 Years MMode/2D Measurements & Calculations IVSd: 0.93 cm LVIDs: 2.40 cm LVIDd: 3.2 cm LVPWd: 0.95 cm LAV (MOD-bp): 38.3 ml LVOT diam: 2.05 cm Ao root diam: 2.33 cm LA dimension: 3.3 cm Doppler Measurements & Calculations MV E max julien: 95.5 cm/sec Med E/e': 10.5 Lat E/e': 8.4 Med Peak E' Julien: 9.1 cm/sec Lat Peak E' Julien: 11.4 cm/sec MR max P.4 mmHg Ao max P.3 mmHg Ao V2 max: 175.4 cm/sec TR max julien: 253.4 cm/sec TR max P.7 mmHg Left Ventricle Left ventricular systolic function is grossly normal. EF 50.2%. Right Ventricle The right ventricle is normal size. The right ventricular systolic function is grossly normal. Atria Normal left and right atrial size and function. Mitral Valve The mitral valve is normal in structure and function. Tricuspid Valve The tricuspid valve is normal in structure and function. PASP 30 mmHg. Aortic Valve The aortic valve is normal in structure and function. Pulmonic Valve The pulmonic valve is normal in structure and function. Great Vessels The aortic root is normal size. Pericardium/Pleura There is no pericardial effusion. Summary Statements Left ventricular systolic function is grossly normal. EF 50.2% The right ventricular systolic function is grossly normal. Normal left and right atrial size and function. The mitral valve is normal in structure and function. The tricuspid valve is normal in structure and function. The aortic valve is normal in structure and function. PASP 30 mmHg MD Santos Gaitan 11/19/2019, 10:58 AM Ordering Physician: Stacy Hernandez Performed By: Yvonne Connelly
--- NOTE | 2019-11-19 12:18 | PN ---
Teaching Attending Note Name of Resident: Hi Khan ATTENDING PHYSICIAN STATEMENT I saw and evaluated the patient. I reviewed the resident's note and discussed the case with the resident. I agree with the resident's findings and plan as documented. SUBJECTIVE: pt seen and examined, denies symptoms OBJECTIVE: Last Vital Signs Temp Pulse Resp BP Pulse Ox 98.2 F 121 H 16 123/98 96 11/19/19 10:00 11/19/19 10:00 11/19/19 10:11/19/19 10:11/19/19 07:41 GENERAL: Awake, alert, and fully oriented, in no acute distress. HEAD: Normal with no signs of trauma. EYES: Pupils equal, round and reactive to light, sclera anicteric, conjunctiva clear. LUNGS: Breath sounds equal, clear to auscultation bilaterally. No wheezes, and no crackles. No accessory muscle use. HEART: Irregular rate and rhythm, normal S1 and S2 ABDOMEN: Soft, nontender, not distended MUSCULOSKELETAL: Normal range of motion at all joints. No bony deformities or tenderness. No CVA tenderness. UPPER EXTREMITIES: 2+ pulses, warm, well-perfused. No cyanosis. No clubbing. No peripheral edema. LOWER EXTREMITIES: 2+ pulses, warm, well-perfused. No calf tenderness. No peripheral edema. NEUROLOGICAL: Cranial nerves II-XII intact. Normal speech. CBCD WBC 10.9 K/mm3 (4.0-10.0) H 11/19/19 03:30 RBC 4.11 M/mm3 (3.60-5.2) 11/19/19 03:30 Hgb 12.2 GM/dL (10.7-15.3) 11/19/19 03:30 Hct 36.1 % (32.4-45.2) 11/19/19 03:30 MCV 87.8 fl (80-96) 11/19/19 03:30 MCHC 33.8 g/dl (32.0-36.0) 11/19/19 03:30 RDW 13.8 % (11.6-15.6) 11/19/19 03:30 Plt Count 278 K/MM3 (134-434) 11/19/19 03:30 MPV 8.2 fl (7.5-11.1) 11/19/19 03:30 CMP Sodium 142 mmol/L (136-145) 11/19/19 05:49 Potassium 3.7 mmol/L (3.5-5.1) 11/19/19 05:49 Chloride 109 mmol/L (98-107) H 11/19/19 05:49 Carbon Dioxide 26 mmol/L (21-32) 11/19/19 05:49 Anion Gap 7 MMOL/L (8-16) L 11/19/19 05:49 BUN 10.1 mg/dL (7-18) 11/19/19 05:49 Creatinine 0.6 mg/dL (0.55-1.3) 11/19/19 05:49 Random Glucose 83 mg/dL (74-106) 11/19/19 05:49 Calcium 8.4 mg/dL (8.5-10.1) L 11/19/19 05:49 Total Bilirubin 0.4 mg/dL (0.2-1) 11/19/19 05:49 AST 19 U/L (15-37) 11/19/19 05:49 ALT 18 U/L (13-61) 11/19/19 05:49 Alkaline Phosphatase 58 U/L (45-117) 11/19/19 05:49 Total Protein 6.8 g/dl (6.4-8.2) 11/19/19 05:49 Albumin 3.0 g/dl (3.4-5.0) L 11/19/19 05:49 CARDIAC ENZYMES Creatine Kinase 28 U/L (26-192) 11/18/19 17:55 Troponin I 0.02 ng/ml (0.00-0.05) 11/19/19 07:30 Active Medications Apixaban (Eliquis -) 5 mg PO BID [facility] Last Admin: 11/19/19 10:24 Dose: 5 mg Documented by: Metoprolol Tartrate (Lopressor -) 50 mg PO BID [facility] ASSESSMENT AND PLAN: 74 year old lady with a PMH of HLD, HTN, GI bleed (2008), Osteoporosis and Right distal radius fracture (11/2018) who presents to the ER after epidoes of nausea and vomiting, found to have Afib. # New onset AFib - likely 2/2 hyperthyroidism - TSH 0.24, pending t3,t4 - will need outpatient US to determine etiology of hyperthyroidism - given cardizem and Eliquis in ED - will adjust metoprolol to 50 BID while waiting on outpatient work up and resolution of hyperthyroidism - [id number] score 3 indicating Stroke risk was 3.2% per year in >90,000 patients (the [place] Atrial Fibrillation Cohort Study) and 4.6% risk of stroke/TIA/systemic embolism - HAS BLED score 2 indicating Risk was 4.1% in one validation study (Jordin 2010) and 1.88 bleeds per 100 patient-years in another validation study (Pisters 2010). - Anticoagulation can be considered, however patient does have moderate risk for major bleeding (~2/100 patient-years) - cardiology consult # Hyperthyoidism -strong family hx of thyroid disease -low TSH, pending T3,T4 - will need thyroid US, endocrinology referal as outpatient HTN HLD DVT prophylaxis
--- NOTE | 2019-11-19 13:25 | PN ---
Physical Exam: SUBJECTIVE: Patient seen and examined at bedside. No acute events reported overnight. OBJECTIVE: Vital Signs Period Temp Pulse Resp BP Sys/Astorga Pulse Ox Last 24 Hr 97.9 F-98.5 F 80-132 14-27 104-123/66-98 95-100 GENERAL: AAOx3, skinny female HEENT: NCAT, PERRLA, EOMI, sclera anicteric, conjunctiva clear NECK: Normal ROM, supple, no lymphadenopathy, JVD, or masses LUNGS: CTABL no wheezes/ rhonchi/ rales. No distress, speaks in full sentences. No increased work of breathing. HEART: tachycardia, normal S1 S2, no M/R/G, peripheral pulses 2+ and equal b/l ABDOMEN: Soft, NTND. No guarding or rebound. No hepatomegaly or splenomegaly. MSK: ROM WNL EXTREMITIES: Normal inspection. No peripheral edema. No clubbing or cyanosis. NEUROLOGICAL: CN II-XII intact. Normal speech SKIN: no rashes or lesions noted Laboratory Results - last 24 hr CBC, BMP 11/19/19 03:30 11/19/19 05:49 11/18/19 11/18/19 11/18/19 17:55 17:55 17:55 WBC 16.2 H RBC 4.72 Hgb 13.4 Hct 40.8 MCV 86.4 MCH 28.4 MCHC 32.9 RDW 13.2 Plt Count 319 MPV 8.0 Absolute Neuts (auto) 14.8 H Total Counted 100 Neutrophils % 91.2 H D Neutrophils % (Manual) 86.0 H Band Neutrophils % 5.0 Lymphocytes % 6.5 L D Lymphocytes % (Manual) 6.0 L Monocytes % 2.0 L Monocytes % (Manual) 3 L Eosinophils % 0.0 D Basophils % 0.3 Nucleated RBC % 0 Platelet Estimate Adequate Platelet Comment No clumping noted PT with INR 12.20 INR 1.03 Sodium 139 Potassium 3.5 Chloride 103 Carbon Dioxide 28 Anion Gap 8 BUN 14.3 Creatinine 0.8 Est GFR (CKD-EPI)AfAm 84.77 Est GFR (CKD-EPI)NonAf 73.14 Random Glucose 164 H Hemoglobin A1c % Calcium 9.3 Magnesium Total Bilirubin 0.2 AST 19 ALT 21 Alkaline Phosphatase 67 Creatine Kinase 28 Troponin I < 0.02 B-Natriuretic Peptide 139.4 H Total Protein 8.2 Albumin 3.7 Lipase 162 TSH Urine Color Urine Appearance Urine pH Ur Specific [place] Urine Protein Urine Glucose (UA) Urine Ketones Urine Blood Urine Nitrite Urine Bilirubin Urine Urobilinogen Ur Leukocyte Esterase 11/18/19 11/19/19 11/19/19 20:26 03:30 05:49 WBC 10.9 H RBC 4.11 Hgb 12.2 Hct 36.1 MCV 87.8 MCH 29.6 MCHC 33.8 RDW 13.8 Plt Count 278 MPV 8.2 Absolute Neuts (auto) 8.2 H Total Counted Neutrophils % 75.2 Neutrophils % (Manual) Band Neutrophils % Lymphocytes % 16.5 D Lymphocytes % (Manual) Monocytes % 7.8 D Monocytes % (Manual) Eosinophils % 0.1 D Basophils % 0.4 Nucleated RBC % 0 Platelet Estimate Platelet Comment PT with INR INR Sodium 142 Potassium 3.7 Chloride 109 H Carbon Dioxide 26 Anion Gap 7 L BUN 10.1 Creatinine 0.6 Est GFR (CKD-EPI)AfAm 104.80 Est GFR (CKD-EPI)NonAf 90.42 Random Glucose 83 Hemoglobin A1c % Calcium 8.4 L Magnesium 2.1 Total Bilirubin 0.4 AST 19 ALT 18 Alkaline Phosphatase 58 Creatine Kinase Troponin I B-Natriuretic Peptide Total Protein 6.8 Albumin 3.0 L Lipase TSH 0.24 L Urine Color Yellow Urine Appearance Turbid Urine pH 8.0 D Ur Specific [place] 1.019 Urine Protein Trace Urine Glucose (UA) Negative Urine Ketones Negative Urine Blood Negative Urine Nitrite Negative Urine Bilirubin Negative Urine Urobilinogen 0.2 Ur Leukocyte Esterase Negative 11/19/19 11/19/19 05:49 07:30 WBC RBC Hgb Hct MCV MCH MCHC RDW Plt Count MPV Absolute Neuts (auto) Total Counted Neutrophils % Neutrophils % (Manual) Band Neutrophils % Lymphocytes % Lymphocytes % (Manual) Monocytes % Monocytes % (Manual) Eosinophils % Basophils % Nucleated RBC % Platelet Estimate Platelet Comment PT with INR INR Sodium Potassium Chloride Carbon Dioxide Anion Gap BUN Creatinine Est GFR (CKD-EPI)AfAm Est GFR (CKD-EPI)NonAf Random Glucose Hemoglobin A1c % 5.6 Calcium Magnesium Total Bilirubin AST ALT Alkaline Phosphatase Creatine Kinase Troponin I 0.02 B-Natriuretic Peptide Total Protein Albumin Lipase TSH Urine Color Urine Appearance Urine pH Ur Specific [place] Urine Protein Urine Glucose (UA) Urine Ketones Urine Blood Urine Nitrite Urine Bilirubin Urine Urobilinogen Ur Leukocyte Esterase Active Medications Generic Name Dose Route Start Last Admin Trade Name Freq PRN Reason Stop Dose Admin Apixaban 5 mg 11/19/19 10:00 11/19/19 10:24 Eliquis - PO 5 mg BID KIM Administration Metoprolol Tartrate 50 mg 11/19/19 22:00 Lopressor - PO BID KIM Non-Formulary Medication 20 mg 11/20/19 10:00 Benazepril Hcl [Lotensin] PO DAILY KIM Non-Formulary Medication 25 mg 11/20/19 10:00 Hydroxyzine Hcl [Hydroxyzine Hcl] PO DAILY KIM Non-Formulary Medication 1 each 11/19/19 13:30 Alendronate Sodium/Vitamin D3 [Fosamax Plus D 70 Mg-5,600 Iu Vit D] PO Q7D KIM Non-Formulary Medication 2.5 ml 11/20/19 10:00 Olopatadine Hcl [Pataday] OP DAILY KIM Non-Formulary Medication 20 mg 11/19/19 22:00 Simvastatin [Zocor] PO HS [facility] ASSESS[facility]/PLAN: 74 y/o lady with PMH of HLD, HTN, GI bleed (2008), Osteoporosis and Right distal radius fracture (11/2018) who presents to the ER after episodes of nausea and vomiting, was found to have Afib in the ED # New onset AFib - likely 2/2 hyperthyroidism - [id number] score: 3 - HAS BLED score: 2 - outpatient thyroid US - Metoprolol 50 mg BID - Eliquis 5 mg - cardiology consulted; f/u reccs #Hyperthyoidism -low TSH: 0.24 -T3 and T4 ordered -+ family hx of thyroid disease - thyroid US, endocrinology referral outpatient #HTN -c/w Metoprolol tartate 50 mg BID -monitor BP #HLD -c/w home statin #FEN -no standing fluids -monitor lytes; replete PRN -sodium controlled diet #Prophylaxis -DVT: Eliquis 5 mg DAILY Visit type - Emergency Visit Emergency Visit: No - New Patient This patient is new to me today: Yes Date on this admission: 11/19/19 - Critical Care Critical Care patient: No - Discharge Referral Referred to [facility] No - Medication Review Med list reviewed for High Risk Meds patients 65 and older: Yes ATTENDING PHYSICIAN STATEMENT I saw and evaluated the patient. I reviewed the resident's note and discussed the case with the resident. I agree with the resident's findings and plan as documented. SUBJECTIVE: OBJECTIVE: ASSESSMENT AND PLAN:
[2019-11-19] MEDS ORDERED: PATIENT'S OWN MEDICATION (NON-FORMULARY) (Alendronate Sodium/Vitamin D3 [Fosamax Plus D 70 PO SCH (13:30)
[2019-11-19 19:11] VITALS: BMI 19.7
[2019-11-19] MEDS: METOPROLOL TARTRATE 50 MG TABLET (FP) PO SCH (21:42)
[2019-11-19] MEDS ORDERED: ATORVASTATIN CA 10 MG TABLET (FP) PO SCH (22:00)
[2019-11-20 07:34] LABS: BASO % 0.6 % (0-2.0); HEMATOCRIT 39.5 % (32.4-45.2); HEMOGLOBIN 13.3 GM/dL (10.7-15.3); MCH 29.5 pg (25.7-33.7); MCHC 33.8 g/dl (32.0-36.0); MEAN CELL VOLUME 87.2 fl (80-96); MEAN PLT VOLUME 8.2 fl (7.5-11.1); MONO % 6.9 % (3.8-10.2); NEUT % 60.5 % (42.8-82.8); PLATELET COUNT 279 K/MM3 (134-434); RBC 4.52 M/mm3 (3.60-5.2); RDW 13.7 % (11.6-15.6); WHITE BLOOD COUNT 9.2 K/mm3 (4.0-10.0)
[2019-11-20 08:36] LABS: BLOOD UREA NITROGEN 11.7 mg/dL (7-18); CALCIUM 8.5 mg/dL (8.5-10.1); CREATININE 0.7 mg/dL (0.55-1.3); MAGNESIUM 2.3 mg/dL (1.8-2.4); PHOSPHOROUS 2.4 mg/dL (2.5-4.9)
--- NOTE | 2019-11-20 09:22 | PN ---
Progress Note, Physician History of Present Illness: Nausea and emesis resolved, back in NSR. - Current Medication List Current Medications: Active Medications Apixaban (Eliquis -) 5 mg PO BID [facility] Last Admin: 11/19/19 21:42 Dose: 5 mg Documented by: Atorvastatin Calcium (Lipitor -) 10 mg PO HS [facility] Last Admin: 11/19/19 21:42 Dose: 10 mg Documented by: Hydroxyzine Pamoate (Vistaril -) 25 mg PO DAILY [facility] Lisinopril (Prinivil) 20 mg PO DAILY [facility] Metoprolol Tartrate (Lopressor -) 50 mg PO BID [facility] Last Admin: 11/19/19 21:42 Dose: 50 mg Documented by: Non-Formulary Medication (Olopatadine Hcl [Pataday]) 2.5 ml OP DAILY [facility] - Objective Vital Signs: Vital Signs Temperature 97.5 F L 11/20/19 05:49 Pulse Rate 80 11/20/19 05:49 Respiratory Rate 20 11/20/19 05:49 Blood Pressure 126/74 11/20/19 05:49 O2 Sat by Pulse Oximetry (%) 97 11/20/19 02:00 Constitutional: Yes: No Distress, Calm, Thin Neck: Yes: Supple Cardiovascular: Yes: Regular Rate and Rhythm Respiratory: Yes: Regular, CTA Bilaterally Gastrointestinal: Yes: Normal Bowel Sounds, Soft Edema: No Labs: CBC, BMP 11/20/19 06:55 11/20/19 06:55 INR, PTT INR 1.03 (0.83-1.09) 11/18/19 17:55 - ....Imaging EKG: Report Reviewed (Tele: NSR) Problem List - Problems (1) Paroxysmal atrial fibrillation with RVR Code(s): I48.0 - PAROXYSMAL ATRIAL FIBRILLATION (2) Subclinical hyperthyroidism Code(s): E05.90 - THYROTOXICOSIS, UNSP WITHOUT THYROTOXIC CRISIS OR STORM Assessment/Plan Problem List - Problems (1) HTN (hypertension) Code(s): I10 - ESSENTIAL (PRIMARY) HYPERTENSION (2) Hypercholesterolemia Code(s): E78.00 - PURE HYPERCHOLESTEROLEMIA, UNSPECIFIED (5) Nausea and vomiting Code(s): R11.2 - NAUSEA WITH VOMITING, UNSPECIFIED Qualifiers: Vomiting type: unspecified Vomiting Intractability: unspecified Qualified Code(s): R11.2 - Nausea with vomiting, unspecified Assessment/Plan 11/19/2019 Echo: Normal biventricular size and fxn, normal biatrial sizes, no sig valve abnl 1. Paroxysmal AF with periods of RVR (vagal-mediated vs subclinical hyperthyroid) [id number] score of 3 2. HTN 3. Hypercholesterolemia 4. History of GI bleed 5. Subclinical hyperthyoidism with low TSH, normal T3,T4 PLAN: 1. Continue Eliquis 5 mg BID, Metoprolol Tartrate 50 mg BID, Lisinopril 20 mg QD, Atorvastatin 20 mg QHS 2. Will need thyroid US and repeat thyroid function in 3-4 weeks with endocrinology referral as outpatient 3. May d/c home from CV-standpoint with f/u in office
[2019-11-20] MEDS ORDERED: PT OWN MED DRAWER 7, Y5N ONE ×2 (09:36→09:37)
[2019-11-20] MEDS: APIXABAN 5 MG TABLET PO SCH (09:39)
[2019-11-20] MEDS: METOPROLOL TARTRATE 50 MG TABLET (FP) PO SCH (09:40)
[2019-11-20] MEDS ORDERED: LISINOPRIL 20 MG TABLET PO SCH (10:00)
[2019-11-20] MEDS ORDERED: PATIENT'S OWN MEDICATION (NON-FORMULARY) (Olopatadine Hcl [Pataday] 2.5 ML) OP SCH (10:00)
[2019-11-20] MEDS: hydrOXYzine PAMOATE 25 MG CAPSULE (FP) PO SCH ×2 (10:24→10:27)
--- NOTE | 2019-11-20 12:05 | DS ---
Physical Exam: SUBJECTIVE: Patient seen and examined at bedside. No acute events overnight. OBJECTIVE: Vital Signs Period Temp Pulse Resp BP Sys/Astorga Pulse Ox Last 24 Hr 97.2 F-98.2 F 70-91 16-20 109-151/63-86 96-99 PHYSICAL EXAM GENERAL: AAOx3, skinny female HEENT: NCAT, PERRLA, EOMI, sclera anicteric, conjunctiva clear NECK: Normal ROM, supple, no lymphadenopathy, JVD, or masses LUNGS: CTABL no wheezes/ rhonchi/ rales. No distress, speaks in full sentences. No increased work of breathing. HEART: tachycardia, normal S1 S2, no M/R/G, peripheral pulses 2+ and equal b/l ABDOMEN: Soft, NTND. No guarding or rebound. No hepatomegaly or splenomegaly. MSK: ROM WNL EXTREMITIES: Normal inspection. No peripheral edema. No clubbing or cyanosis. NEUROLOGICAL: CN II-XII intact. Normal speech SKIN: no rashes or lesions noted LABS Laboratory Results - last 24 hr CBC, BMP 11/20/19 06:55 11/20/19 06:55 11/19/19 11/19/19 11/19/19 13:15 13:15 13:15 WBC RBC Hgb Hct MCV MCH MCHC RDW Plt Count MPV Absolute Neuts (auto) Neutrophils % Lymphocytes % Monocytes % Eosinophils % Basophils % Nucleated RBC % Sodium Potassium Chloride Carbon Dioxide Anion Gap BUN Creatinine Est GFR (CKD-EPI)AfAm Est GFR (CKD-EPI)NonAf Random Glucose Calcium Phosphorus Magnesium TSH Free T4 1.11 Thyroxine (T4) 10.6 Free T3 2.7 Total T3 93.00 Resin T3 Uptake 32.5 Thyroglobulin Antibody < 1.0 Thyroid Peroxidase Ab < 9 11/20/19 11/20/19 06:55 06:55 WBC 9.2 RBC 4.52 Hgb 13.3 Hct 39.5 MCV 87.2 MCH 29.5 MCHC 33.8 RDW 13.7 Plt Count 279 MPV 8.2 Absolute Neuts (auto) 5.6 Neutrophils % 60.5 Lymphocytes % 31.0 D Monocytes % 6.9 Eosinophils % 1.0 D Basophils % 0.6 Nucleated RBC % 0 Sodium 141 Potassium 4.0 Chloride 108 H Carbon Dioxide 27 Anion Gap 6 L BUN 11.7 Creatinine 0.7 Est GFR (CKD-EPI)AfAm 99.62 Est GFR (CKD-EPI)NonAf 85.95 Random Glucose 95 Calcium 8.5 Phosphorus 2.4 L Magnesium 2.3 TSH 1.39 Free T4 Thyroxine (T4) Free T3 Total T3 Resin T3 Uptake Thyroglobulin Antibody Thyroid Peroxidase Ab HOSPITAL COURSE: 74 y/o lady with PMH of HLD, HTN, GI bleed (2008), Osteoporosis and Right distal radius fracture (11/2018) who presented to the ER after episodes of nausea and vomiting, was found to have Afib in the ED. Patient had a [id number] score of 3 and a HAS BLED score of 2 so therefore AC was started. Patient had strong family history of thyroid disease and had a low TSH so she was recommended for outpatient thyroid ultrasound. Patient was started on Metoprolol 50 BID for her new a fibb and was discharged on it. Patient was seen by cardiology who recommended outpatient follow up. Date of Admission:11/18/19 11/18/19- a fib with RVR 11/18/19-CXR- Impression: Weak inspiration. No acute chest pathology. No comparison studies 11/18/19-CT A/P-No definite CT findings of acute pathology are noted. A nonspecific 1.7 cm left adrenal nodule is seen very likely representing an adenoma on a statistical basis. Biochemical evaluation is suggested. If prior exams are not available from a different facility for direct comparison correlation with 3 month follow-up MRI or CT is suggested to evaluate stability. 11/19/1933-[id number] systolic function is grossly normal. EF= 50.2%. RV systolic function is grossly normal. Normal L and R atrial size and function. Mitral, tricuspid, and aortic valve is normal in structure and function. PASP 30 mmHg Date of Discharge: 11/20/19 Minutes to complete discharge: 36 Discharge Summary Problems reviewed: Yes Reason For Visit: ATRIAL FIBRILLATION Current Active Problems Atrial fibrillation (Acute) HTN (hypertension) (Acute) Hypercholesterolemia (Acute) Leukocytosis (Acute) Nausea and vomiting (Acute) Condition: Stable - Instructions Diet, Activity, Other Instructions: Your visit: You were admitted to the hospital for nausea and vomiting. You were found to have and abnormal heart rhythm called atrial fibrillation. You were treated with medications with improvement of your symptoms. Additional Imaging findings: -During your stay we did a CT scan of your abdomen which showed a 1.7 cm Left Adrenal nodule. Please get repeat CT or MRI in 3-6 months. Medications changes: -Please stop taking ATENOLOL. We started you on a different heart medication. New Meds: -We started you on a new heart medication. Please take 1 PILL OF METOPROLOL TARTATE 50 MG TWICE A DAY. -We started you on a blood thinner medication. Please take 1 PILL OF ELIQUIS 5 MG ONCE A DAY. -Continue to take all other home medications as prescribed. Follow up: - Please follow-up with your mannequin wig maker, Dr. Coe in 1 week to go over your new medications and to see how long you need to take your blood thinner, Eliquis. - Please follow-up with your bindery machine setter, Dr. Schultz in 1 week to go over your thyroid blood levels and to get a thyroid ultrasound. - Visit with your Primary Care Provider in 2 weeks to follow up about your left adrenal nodule and to schedule repeat imaging. If you do not have a primary care provider you may make an appointment with Dr. Jordan at the [facility] clinic located at [address] [place] [address] ([phone]). Additional Instructions: -You are being discharged to your home. -Please return to the Emergency Department if you experience worsening pain, fevers, chills, shortness of breath, or chest pain, or if you experience any worsening, new or concerning symptoms. Referrals: Claude Jordan MD [Staff Physician] - 1 Week (f/u new onset afibb) Best Coe MD [Staff Physician] - 1 Week (f/u new onset afibb) Jerzy Schultz MD [Staff Physician] - 1 Week (f/u for hyperthyroidism ) Disposition: HOME - Home Medications Comprehensive Discharge Medication List: Ambulatory Orders Benazepril HCl [Lotensin] 20 mg PO DAILY 11/28/18 Simvastatin [Zocor] 20 mg PO HS 11/28/18 Alendronate Sodium/Vitamin D3 [Fosamax Plus D 70 mg-5,600 Iu vIT d] 1 each PO Q7D 11/18/19 Hydroxyzine HCl 25 mg PO DAILY 11/19/19 Olopatadine HCl [Pataday] 2.5 ml OP DAILY 11/19/19 Apixaban [Eliquis -] 5 mg PO BID 15 Days #30 tablet 11/20/19 Metoprolol Tartrate [Lopressor -] 50 mg PO BID 30 Days #60 tablet 11/20/19 This patient is new to me today: No Emergency Visit: No Critical Care patient: No - Discharge Referral Referred to [facility] Med [facility].C.: No ATTENDING PHYSICIAN STATEMENT I saw and evaluated the patient. I reviewed the resident's note and discussed the case with the resident. I agree with the resident's findings and plan as documented. SUBJECTIVE: OBJECTIVE: ASSESSMENT AND PLAN:
--- NOTE | 2019-11-20 12:20 | PN ---
Teaching Attending Note Name of Resident: Hi Khan ATTENDING PHYSICIAN STATEMENT I saw and evaluated the patient. I reviewed the resident's note and discussed the case with the resident. I agree with the resident's findings and plan as documented. SUBJECTIVE: pt seen and examined OBJECTIVE: Last Vital Signs Temp Pulse Resp BP Pulse Ox 97.8 F 91 H 18 151/86 96 11/20/19 10:00 11/20/19 10:00 11/20/19 10:00 11/20/19 10:11/20/19 10:00 GENERAL: Awake, alert, and fully oriented, in no acute distress. HEAD: Normal with no signs of trauma. EYES: Pupils equal, round and reactive to light, sclera anicteric, conjunctiva clear. LUNGS: Breath sounds equal, clear to auscultation bilaterally. No wheezes, and no crackles. No accessory muscle use. HEART: Irregular rate and rhythm, normal S1 and S2 ABDOMEN: Soft, nontender, not distended MUSCULOSKELETAL: Normal range of motion at all joints. No bony deformities or tenderness. No CVA tenderness. UPPER EXTREMITIES: 2+ pulses, warm, well-perfused. No cyanosis. No clubbing. No peripheral edema. LOWER EXTREMITIES: 2+ pulses, warm, well-perfused. No calf tenderness. No peripheral edema. NEUROLOGICAL: Cranial nerves II-XII intact. Normal speech. CBCD WBC 9.2 K/mm3 (4.0-10.0) 11/20/19 06:55 RBC 4.52 M/mm3 (3.60-5.2) 11/20/19 06:55 Hgb 13.3 GM/dL (10.7-15.3) 11/20/19 06:55 Hct 39.5 % (32.4-45.2) 11/20/19 06:55 MCV 87.2 fl (80-96) 11/20/19 06:55 MCHC 33.8 g/dl (32.0-36.0) 11/20/19 06:55 RDW 13.7 % (11.6-15.6) 11/20/19 06:55 Plt Count 279 K/MM3 (134-434) 11/20/19 06:55 MPV 8.2 fl (7.5-11.1) 11/20/19 06:55 CMP Sodium 141 mmol/L (136-145) 11/20/19 06:55 Potassium 4.0 mmol/L (3.5-5.1) 11/20/19 06:55 Chloride 108 mmol/L (98-107) H 11/20/19 06:55 Carbon Dioxide 27 mmol/L (21-32) 11/20/19 06:55 Anion Gap 6 MMOL/L (8-16) L 11/20/19 06:55 BUN 11.7 mg/dL (7-18) 11/20/19 06:55 Creatinine 0.7 mg/dL (0.55-1.3) 11/20/19 06:55 Calcium 8.5 mg/dL (8.5-10.1) 11/20/19 06:55 Total Bilirubin 0.4 mg/dL (0.2-1) 11/19/19 05:49 AST 19 U/L (15-37) 11/19/19 05:49 ALT 18 U/L (13-61) 11/19/19 05:49 Alkaline Phosphatase 58 U/L (45-117) 11/19/19 05:49 Total Protein 6.8 g/dl (6.4-8.2) 11/19/19 05:49 Albumin 3.0 g/dl (3.4-5.0) L 11/19/19 05:49 Active Medications Apixaban (Eliquis -) 5 mg PO BID [facility] Last Admin: 11/20/19 09:39 Dose: 5 mg Documented by: Atorvastatin Calcium (Lipitor -) 10 mg PO HS [facility] Last Admin: 11/19/19 21:42 Dose: 10 mg Documented by: Hydroxyzine Pamoate (Vistaril -) 25 mg PO DAILY [facility] Last Admin: 11/20/19 10:27 Dose: Not Given Documented by: Lisinopril (Prinivil) 20 mg PO DAILY [facility] Last Admin: 11/20/19 09:40 Dose: 20 mg Documented by: Metoprolol Tartrate (Lopressor -) 50 mg PO BID [facility] Last Admin: 11/20/19 09:40 Dose: 50 mg Documented by: Non-Formulary Medication (Olopatadine Hcl [Pataday]) 2.5 ml OP DAILY [facility] ASSESSMENT AND PLAN: 74 year old lady with a PMH of HLD, HTN, GI bleed (2008), Osteoporosis and Right distal radius fracture (11/2018) who presents to the ER after epidoes of nausea and vomiting, found to have Afib. # New onset AFib - etiology: non valvular, hyperthyroidism? - TSH 0.24, normal t3,t4 - will need outpatient US to determine etiology of hyperthyroidism and repeat thyroid function in 3-4 weeks - c/w BB and Eliquis in ED - [id number] score 3 indicating Stroke risk was 3.2% per year in >90,000 patients (the [place] Atrial Fibrillation Cohort Study) and 4.6% risk of stroke/TIA/systemic embolism - HAS BLED score 2 indicating Risk was 4.1% in one validation study (Jordin 2011) and 1.88 bleeds per 100 patient-years in another validation study (Pisters 2010). - Anticoagulation can be considered, however patient does have moderate risk for major bleeding (~2/100 patient-years) - cardiology consult appreciated - for outpatient follow up with cardiology and endocrine # Subclinical Hyperthyoidism -strong family hx of thyroid disease -low TSH, normal T3,T4 - will need thyroid US, and repeat thyroid function in 3-4 weeks with endocrinology referal as outpatient HTN HLD DVT prophylaxis
[2019-11-20 14:00] VITALS: BP 130/72; PULSE 73; TEMP 98
== END 2019-11-20 17:13 | disposition home or self-care (01) | DRG 310 ==
LOC: JER 16:55 → JERBED 23:55 → J4W 11-19 18:34
PROVIDERS: ADMIT Internal Medicine; ATTEND Student in an Organized Health Care Education/Training Program
DX: I48.0 Paroxysmal atrial fibrillation (principal); I10 Essential (primary) hypertension; E78.5 Hyperlipidemia, unspecified; M81.0 Age-related osteoporosis without current pathological fracture; K52.9 Noninfective gastroenteritis and colitis, unspecified; R73.9 Hyperglycemia, unspecified; E05.90 Thyrotoxicosis, unspecified without thyrotoxic crisis or storm; D72.89 Other specified disorders of white blood cells
CPT/HCPCS: 36415; 71045-TC-FY; 74176-TC; 80048; 80053; 81003; 82550; 83036; 83690; 83735; 83880; 84100; 84436; 84439; 84443; 84479; 84480; 84481; 84482; 84484; 85025; 85610; 86376; 86800; 87040; 93005; 93010; 93306-TC; 99285-25; C9803; U0003

== ENCOUNTER → 2020-01-28 | Day surgery (SDC) | payer OTHER | END | disposition home or self-care (01) | LOC: JRADIR 10:23 | PROVIDERS: ATTEND Internal Medicine Endocrinology, Diabetes & Metabolism | PROC: 0GBH3ZX Excision of Right Thyroid Gland Lobe, Percutaneous Approach, Diagnostic (ICD-10-PCS; principal; 2020-01-28) | PROC: BG44ZZZ Ultrasonography of Thyroid Gland (ICD-10-PCS; 2020-01-28) | DX: E04.1 Nontoxic single thyroid nodule (principal) | CPT/HCPCS: 76942; 88173; 88305-TC ==